=== PATIENT | female | born 1985 | race Two or more races ===

== ENCOUNTER 2018-05-02 09:26 | Emergency (ER) | payer MEDICAID ==
[~2018-05-02] VITALS: Ht 162.6 cm; Wt 67.1 kg
[2018-05-02 09:57] VITALS: BP 145/74
== END 2018-05-02 09:58 | disposition home or self-care (01) ==
LOC: ER 09:27
DX: T19.2XXA Foreign body in vulva and vagina, initial encounter (principal); W45.8XXA Other foreign body or object entering through skin, initial encounter; Y93.89 Activity, other specified; Y92.89 Other specified places as the place of occurrence of the external cause; Y99.8 Other external cause status
CPT/HCPCS: 99284; A4606; Z7610

== ENCOUNTER 2018-06-06 17:15 | Emergency (ER) | payer MEDICAID, OTHER ==
[~2018-06-06] VITALS: Ht 170.2 cm; Wt 72.6 kg
[2018-06-06] MEDS ORDERED: ONDANSETRON 4 MG TAB.RAPDIS ONE (17:38)
[2018-06-06 17:45] LABS: APPEARANCE,URINE Clear (CLEAR); BILIRUBIN,URINE Negative (NEGATIVE); BLOOD, URINE Trace-intact Ery/uL (NEGATIVE); COLOR,URINE Yellow (YELLOW); KETONES,URINE Negative (NEGATIVE); LEUKOCYTE ESTERASE ,URINE Negative (NEGATIVE); NITRITE, URINE Negative (NEGATIVE); PROTEIN,URINE Negative (NEGATIVE); UGLUCOSE Negative (NEGATIVE); UROBILINOGEN,URINE 0.2 EU/dL (0.2)
[2018-06-06 17:58] LABS: BACTERIA,URINE Few /HPF (None Seen); SQUAMOUS EPITHELIAL CELL,UR Few /HPF (None Seen); WBC,URINE 0-2 /HPF (0-3)
[2018-06-06] MEDS ORDERED: ONDANSETRON 4 MG TAB.RAPDIS PO ONE (18:00)
--- NOTE | 2018-06-06 18:00 | NUR ---
patient presented to the ER c/o nausea, alert and oriented x 4, on room air, breathing evenly and unlabored. connected to the monitor adn pulse ox. kept comfortable. will continue to monitor accordingly.
[2018-06-06 18:42] VITALS: BP 143/80
--- NOTE | 2018-06-06 18:42 | NUR ---
Patient discharged to home in stable condition. Written and verbal after care instructions given. Patient verbalizes understanding of instruction.
== END 2018-06-06 18:42 | disposition home or self-care (01) ==
LOC: ER 17:15
DX: O26.891 Other specified pregnancy related conditions, first trimester (principal); R11.0 Nausea; R19.7 Diarrhea, unspecified; R50.9 Fever, unspecified; Z3A.01 Less than 8 weeks gestation of pregnancy
CPT/HCPCS: 81000-TC; 84703-TC; Q0162

== ENCOUNTER 2018-06-14 17:19 | Emergency (ER) | payer OTHER ==
--- NOTE | 2018-06-14 18:56 | NUR ---
called for triage not in the waiting room
--- NOTE | 2018-06-14 19:13 | NUR ---
called for triage not in the waiting room.
== END 2018-06-14 19:18 | disposition left against medical advice (07) ==
LOC: ER 17:19
DX: Z53.21 Procedure and treatment not carried out due to patient leaving prior to being seen by health care provider (principal)